=== PATIENT | female | born 1985 | race Caucasian/White ===

== ENCOUNTER 2016-08-21 06:29 | Emergency (ER) | payer SELFPAY ==
[2016-08-21 06:28] LABS: INFLUENZA A NEG (NEG); INFLUENZA B NEG (NEG)
[~2016-08-21 06:29] MED LIST: ALBUTEROL17 GM INH; BACTRIM DS TABL1 TA1 PO; BACTRIM DS TABL1 TAB PO; CIPRO PO; DICLOFENAC PO; ELIMITE60 GM TOP; FLEXERIL PO; FLEXERIL10 MG PO; HYCODAN60 ML 5MG/ PO; HYDROMET SYRUP480 ML PO; KEFLEX500 MG PO; LORTAB 5/500 TA1 TA1 PO; MOBIC PO; NABUMETONE PO; NAPROSYN500 MG PO; NO MEDICATIONS; PERIDEX480 ML PO; PYRIDIUM PO; SKELAXIN PO; TAMIFLU75 M1 PO; ULTRAM PO; VICODIN 5/500 T1 TAB PO; VOLTAREN75 MG PO; ZITHROMAX500 MG PO
== END 2016-08-21 07:17 | disposition home or self-care (01) ==
LOC: SED 06:29
PROVIDERS: Emergency Medicine
DX: J06.9 Acute upper respiratory infection, unspecified (principal); H92.01 Otalgia, right ear
CPT/HCPCS: 87804; 99282; 99283

== ENCOUNTER 2016-12-24 13:49 | Emergency (ER) | payer OTHER ==
--- NOTE | ~2016-12-24 | EKG ---
PATIENT: MACIE STILES UNIT #: [id number] Ventricular Rate: 121 BPM Atrial Rate: 121 BPM P-R Interval: 136 ms QRS Duration: 92 ms Q-T Interval: 316 ms QTC Calculation(Bezet): 448 ms P Atkinson: 83 degrees Calculated R Atkinson: 81 degrees Calculated T Atkinson: 60 degrees Diagnosis Line: Sinus tachycardia Diagnosis Line: Right atrial enlargement Diagnosis Line: Minimal voltage criteria for LVH, may be normal Diagnosis Line: variant Diagnosis Line: Cannot rule out Anterior infarct , age Diagnosis Line: undetermined Diagnosis Line: Abnormal ECG Diagnosis Line: No previous ECGs available Diagnosis Line: Confirmed by CATRINA LOVELACE MD ([id number]) on Diagnosis Line: 12/27/2016 11:03:10 AM INTERPRETING MD: RADU DHALIWAL
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
== END 2016-12-24 15:33 | disposition home or self-care (01) ==
LOC: SED 13:49
DX: S29.012A Strain of muscle and tendon of back wall of thorax, initial encounter (principal); S70.11XA Contusion of right thigh, initial encounter; S60.051A Contusion of right little finger without damage to nail, initial encounter; F17.200 Nicotine dependence, unspecified, uncomplicated; V43.52XA Car driver injured in collision with other type car in traffic accident, initial encounter; Y93.89 Activity, other specified; Y92.410 Unspecified street and highway as the place of occurrence of the external cause
CPT/HCPCS: 72072; 73130; 73552; 93005; 99284